=== PATIENT | female | born 1985 | race Two or more races ===

== ENCOUNTER 2019-04-18 07:01 | Inpatient (IN) | payer OTHER ==
[~2019-04-18] VITALS: Ht 165.1 cm; Wt 1.8 kg
[2019-04-18] MEDS ORDERED: SYNTHROID125 MCG PO (08:56)
[2019-04-18] MEDS ORDERED: PRENATAL TABLE1 EAC1 PO (08:56)
== END 2019-04-21 16:18 | disposition home or self-care (01) | DRG 785 ==
LOC: LDR 07:01 → OB/GYN 07:01 → O/R 19:43 → OB/GYN 21:46
PROVIDERS: ADMIT Specialist
PROC: 0UL70ZZ Occlusion of Bilateral Fallopian Tubes, Open Approach (ICD-10-PCS; 2019-04-18)
PROC: 4A1HXCZ Monitoring of Products of Conception, Cardiac Rate, External Approach (ICD-10-PCS; 2019-04-18)
PROC: 10D00Z1 Extraction of Products of Conception, Low, Open Approach (ICD-10-PCS; principal; 2019-04-18 11:30)
DX: O82 Encounter for cesarean delivery without indication (principal); O32.2XX0 Maternal care for transverse and oblique lie, not applicable or unspecified; O30.043 Twin pregnancy, dichorionic/diamniotic, third trimester; Z3A.37 37 weeks gestation of pregnancy; Z37.2 Twins, both liveborn; Z30.2 Encounter for sterilization